=== PATIENT | female | born 1930 | race Caucasian/White ===

== ENCOUNTER 2016-06-29 17:55 | Observation (INO) ==
--- NOTE | 2016-06-29 18:01 | Emergency Department Note ---
Disposition Clinical Impression: Pubic ramus fracture Disposition: Admitted As Inpatient Condition: Fair Time of Disposition: 17:59 (ke marcialjose) General Adult HPI - General Chief complaint: ED General Medical Stated complaint: increased pain to pelvis, s/p fx Time Seen by Provider: 06/29/16 18:00 Source: patient Mode of arrival: ambulatory Limitations: no limitations Nursing Notes Reviewed: Yes Vital Signs Reviewed: Yes - History of Present Illness HPI Narrative: Seen last week by the emergency room diagnosis of the pubic rami fracture patient at that time thought she could go home since then has not been able to get up and be very ambulatory at home and is having increasing pain and tenderness was seen by the orthopedic physician today who sent her to the emergency room for evaluation she presents here with plans of being admitted for the fracture Onset (ago): day(s) Location: pelvis Pain Severity: severe Pain Scale: 10 Consistency: constant Improves with: immobilization Worsens with: movement Associated symptoms: Reports: weakness. Denies: confusion, chest pain, cough, diaphoresis, fever/chills, headaches, loss of appetite, malaise, nausea/vomiting , shortness of breath, syncope Treatments Prior to Arrival: none - Related Data Home Medications Medication Instructions Recorded Confirmed Cholecalciferol (Vitamin D3) 1,000 unit PO QAM 08/07/15 06/22/16 [Vitamin D3] Docusate [Colace] 100 mg PO BID 08/07/15 06/29/16 Levothyroxine Sodium [Synthroid] 200 mcg PO QAM 08/07/15 06/29/16 [place]-3/Dha/Epa/Fish Oil [Fish Oil 1 each PO QAM 08/07/15 06/29/16 [place]-3 Softgel] CloNIDine HCl [Clonidine HCl] 0.3 mg PO TID 08/21/15 06/22/16 Sertraline [Zoloft] 100 mg PO DAILY 08/21/15 06/29/16 Minoxidil 10 mg PO BID 10/21/15 06/29/16 Atorvastatin [Lipitor] 10 mg PO HS 04/26/16 06/22/16 Carvedilol [Coreg] 12.5 mg PO TIDWM 04/26/16 06/29/16 NIFEdipine [Nifedical Xl] 30 mg PO BID 04/26/16 06/29/16 Pantoprazole Sodium [Protonix] 20 mg PO BID 04/26/16 06/29/16 Warfarin [Coumadin] 10 mg PO DAILY 04/26/16 06/29/16 Amiodarone [Cordarone] 200 mg PO DAILY 06/29/16 06/29/16 Atorvastatin [Lipitor] 10 mg PO HS 06/29/16 06/29/16 Previous Rx's Medication Instructions Recorded Meloxicam [Mobic] 7.5 mg PO DAILY #10 tablet 06/22/16 OxyCODONE/APAP 5/325 [Percocet 0.5 - 1 each PO Q4HR PRN #20 tablet 06/22/16 5/325 MG] Allergies Allergy/AdvReac Type Severity Reaction Status Date / Time chloramphenicol Allergy Blister Verified 06/29/16 17:57 [From Chloromycetin] codeine Allergy Blister Verified 06/29/16 17:57 Homatropine [From Tussigon] Allergy Blister Verified 06/29/16 17:57 Hydralazine Allergy Shakiness Verified 06/29/16 17:57 hydrocodone [From Tussigon] Allergy Blister Verified 06/29/16 17:57 Penicillins [PCN] Allergy Blister Verified 06/29/16 17:57 quinagolide Allergy Blister Verified 06/29/16 17:57 amlodipine [From Norvasc] AdvReac See Verified 06/29/16 17:57 Comments All systems ED: reviewed and negative except as stated. Constitutional: Reports: weakness. Denies: fever, chills Eyes: Denies: vision change ENT ED: Denies: ear pain, throat pain Cardiovascular: Denies: chest pain, palpitations, dyspnea on exertion Respiratory: Denies: cough, dyspnea, wheezes Gastrointestinal: Denies: abdominal pain, nausea, vomiting Genitourinary: Denies: urgency, dysuria, frequency Musculoskeletal: Reports: other (Pain with weightbearing) Integumentary: Denies: abrasion, lesions Neurological: Reports: weakness. Denies: headache Psychiatric: Denies: anxiety Endocrine: Reports: fatigue Hematological/Lymphatic: Denies: easy bleeding Allergic/Immunologic: Denies: facial swelling Past Medical History - Past Medical History Attestation: Yes The following information was validated with the patient. Source: patient, old records reviewed, nursing notes reviewed Medical history: Reports: atrial fibrillation, diabetes, dialysis, hyperlipidemia, hypertension, renal disease, thyroid disease Psychiatric history: Reports: no psych history [employer] history: Reports: no [employer] history, uterine fibroids - Social History Smoking Status: Never smoker Smokeless Tobacco Status: No Alcohol use: Reports: none Drug use: Reports: none Physical Exam - General Limitations: no limitations General appearance: alert, in no apparent distress - Head Head exam: atraumatic, normocephalic, normal inspection - Eye Eye exam: Present: normal appearance, PERRL, EOMI - ENT ENT exam: normal exam, normal oropharynx, mucous membranes moist, normal external ear exam - Neck Neck exam: Present: normal inspection, full ROM, lymphadenopathy - Chest Chest inspection: Present: normal inspection - Respiratory Respiratory exam: Present: normal lung sounds bilaterally - Cardiovascular Cardiovascular exam: Present: regular rate, normal rhythm, normal heart sounds - Abdominal Exam Abdominal exam: Present: soft, Non-Tender, normal bowel sounds. Absent: tenderness, distention, guarding, rebound, rigidity - Expanded Upper Extremity Exam Shoulder exam: Present: normal inspection, full ROM Arm exam: Present: normal inspection, full ROM Elbow exam: Present: normal inspection, full ROM Forearm/Wrist exam: Present: normal inspection, full ROM Hand exam: Present: normal inspection, full ROM Vascular exam: Normal: capillary refill, radial pulse - Expanded Lower Extremity Exam Hip/Pelvis exam: Present: normal inspection, full ROM, other (pain with weight bearing) Upper leg exam: Present: normal inspection, full ROM Knee exam: Present: normal inspection, full ROM Lower leg exam: Present: normal inspection, full ROM Ankle exam: Present: normal inspection, full ROM Foot/toe exam: Present: normal inspection, full ROM Neurovascular/Tendon exam: Present: normal capillary refill, normal fine/light touch. Absent: motor deficit, sensory deficit, tendon deficit Gait: unable to bear weight - Back Exam Back exam: Present: normal inspection, full ROM. Absent: muscle spasm - Neurological Exam Neurological exam: Present: alert, oriented X3, CN II-XII intact - Psychiatric Psychiatric exam: Present: normal affect, normal mood - Skin Skin exam: Present: warm, dry, intact, normal color Course Course Narrative: Seen and examined admitted - Reevaluation(s) Reevaluation #1: Spoke with Dr. Dempsey that the patient receiving dialysis will try to get her arranged to get [facility] patient denies any additional complaints we will have her evaluated by social welfare clerk in the morning Vital Signs Pulse Rate 63 06/29/16 17:58 Respiratory Rate 18 06/29/16 17:58 Blood Pressure 175/64 06/29/16 17:58 O2 Sat by Pulse Oximetry 97 06/29/16 17:58 Temperature 98.8 F 06/29/16 18:25 Pulse Rate 68 06/29/16 18:25 Respiratory Rate 20 06/29/16 18:25 Blood Pressure 175/56 06/29/16 18:25 O2 Sat by Pulse Oximetry 98 06/29/16 18:25 Oxygen Delivery Oxygen Delivery Nasal Cannula Medical Decision Making - MDM Narrative Medical decision making narrative: Seen and examined patient admitted for observation transferred to [facility] for observation for PT OT evaluation for possible group home or Respit care Ke agrees - Medical Records Medical records reviewed: Yes I reviewed the patient's medical records. - Lab Data Lab results reviewed: Yes I reviewed the patient's lab results. Result diagrams: 06/29/16 18:12 06/29/16 18:12 Lab Results 06/29/16 06/29/16 06/29/16 Range/Units 18:12 18:12 18:12 WBC 12.2 H (4.3-11.1) K/mcL RBC 3.21 L (3.82-4.97) M/mcL Hgb 9.5 L (11.5-15.4) g/dL Hct 27.9 L (35.3-44.9) % MCV 86.9 (83.0-100.0) fL MCH 29.6 (28.0-33.3) pg MCHC 34.1 (31.6-35.5) g/dL RDW 18.1 H (11.5-14.5) % Plt Count 234 (140-400) K/mcL MPV 8.3 L (9.4-12.4) fL Immature Gran % 0.9 (0-4) % Seg Neutrophils % 85.9 % Lymphocytes % 6.7 % Monocytes % 5.5 % Eosinophils % 0.8 % Basophils % 0.2 % Neutrophils # 10.5 H (1.6-8.9) K/mcL Lymphocytes # 0.8 (0.6-4.6) K/mcL Monocytes # 0.7 (0.0-1.3) K/mcL Eosinophils # 0.1 (0.0-0.6) K/mcL Basophils # 0.0 (0.0-0.2) K/mcL PT 28.8 H (9.4-12.1) Seconds INR 2.6 APTT 39.3 H (26.0-36.0) Seconds Sodium 134 L (136-145) mEq/L Potassium 4.3 (3.5-4.5) mEq/L Chloride 98 (98-109) mEq/L Carbon Dioxide 22 (19-29) mEq/L BUN 49 H (7-20) mg/dL Creatinine 5.06 H (0.57-1.11) mg/dL Est GFR ( Amer) 10 L (> 60) Est GFR (Non-Af Amer) 8 L (> 60) BUN/Creatinine Ratio 10 (6-26) Glucose 220 H (70-99) mg/dL Calculated Osmolality 298 (280-300) Calcium 8.4 L (8.6-10.8) mg/dL Critical Care Time Critical Care Time: No
[2016-06-29 18:20] LABS: Basophils % 0.2 %; Eosinophils # 0.1 K/mcL (0.0-0.6); Eosinophils % 0.8 %; Hematocrit 27.9 % (35.3-44.9); Hemoglobin 9.5 g/dL (11.5-15.4); Immature Granulocytes % 0.9 % (0-4); Lymphocytes # 0.8 K/mcL (0.6-4.6); Lymphocytes % 6.7 %; Mean Corpuscular HGB Conc 34.1 g/dL (31.6-35.5); Mean Corpuscular Hemoglobin 29.6 pg (28.0-33.3); Mean Corpuscular Volume 86.9 fL (83.0-100.0); Mean Platelet Volume 8.3 fL (9.4-12.4); Monocytes # 0.7 K/mcL (0.0-1.3); Monocytes % 5.5 %; Platelet Count 234 K/mcL (140-400); Red Blood Count 3.21 M/mcL (3.82-4.97); Red Cell Distribution Width 18.1 % (11.5-14.5); Segmented Neutrophils % 85.9 %
[2016-06-29 18:21] LABS: Neutrophils # 10.5 K/mcL (1.6-8.9)
[2016-06-29 18:25] LABS: INR 2.6; Prothrombin Time 28.8 Seconds (9.4-12.1)
[2016-06-29 18:28] LABS: Activated Partial Thrombo Time 39.3 Seconds (26.0-36.0)
[2016-06-29 18:32] LABS: Calcium 8.4 mg/dL (8.6-10.8); Potassium 4.3 mEq/L (3.5-4.5)
[2016-06-29] MEDS ORDERED: Naloxone 0.4 MG/ML INJ IVP PRN (19:34)
[2016-06-29] MEDS ORDERED: *HR* OxyCODONE/APAP 5/325 TABLET PO PRN (19:34)
[2016-06-29] MEDS: *HR* Warfarin 2 MG TABLET PO SCH (21:02)
[2016-06-29] MEDS: NIFEdipine XL (24 HR) 30 MG TAB.ER.24 PO SCH (21:02)
[2016-06-29 22:56] LABS: Bilirubin,Urine Moderate (Negative); Blood,Urine Negative (Negative); Clarity,Urine Cloudy (Clear); Color,Urine Yellow (Yellow); Glucose,Urine (UA) 100 mg/dL (Normal); Ketones,Urine 15 mg/dL (Negative); Leukocyte Esterase,Urine Trace (Negative); Nitrite,Urine Negative (Negative); Protein,Urine >=300 mg/dL (Neg-Trace); Specific Gravity,Urine 1.025 (1.010-1.025); Urobilinogen,Urine Normal (Normal)
[2016-06-29 23:04] LABS: Bacteria,Urine Few per hpf (None-Few); Squamous Epithelial Cell,Urine Moderate per lpf (None-Few); WBC,Urine 15-30 per hpf (0-3)
[2016-06-30] MEDS ORDERED: OMEGA PO SCH (09:00)
[2016-06-30] MEDS ORDERED: FISH OIL PO SCH (09:00)
[2016-06-30] MEDS ORDERED: *HR* Warfarin 5 MG TABLET PO SCH (09:00)
[2016-06-30] MEDS ORDERED: DHA PO SCH (09:00)
[2016-06-30] MEDS ORDERED: EPA PO SCH (09:00)
[2016-06-30] MEDS: NIFEdipine XL (24 HR) 30 MG TAB.ER.24 PO SCH ×2 (09:06→21:22)
[2016-06-30] MEDS: Cholecalciferol (D-3) 1,000 UNIT TABLET PO SCH (09:06)
--- NOTE | 2016-06-30 12:43 | Internal Med History&Physical ---
Date of Encounter: 06/30/16 Time of Encounter: 12:15 Assessment and Plan (1) Pubic ramus fracture Current visit: Yes Status: Acute June 30. She has been admitted to [facility] observation status. Physical therapy and occupational therapy consults will be ordered. Analgesics will be given as needed. Qualifiers: Encounter type: initial encounter Fracture type: closed Laterality: left Qualified Code(s): S32.592A - Other specified fracture of left pubis, initial encounter for closed fracture (2) CKD (chronic kidney disease) stage V requiring chronic dialysis Current visit: Yes Status: Chronic June 30. Continue MWF dialysis. (3) Anemia Current visit: No Status: Chronic June 30. Iron studies done 05/12/2016 showed iron 50, transferrin saturation 24 %, ferritin 42, transferrin 146. Folate level was 6.7 on 08/09/2015. We will recheck folate level in the a.m. Suspect primarily due to chronic kidney disease. 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 The etiology is not obvious at this time. We will recheck labs in a.m. (5) High blood pressure Current visit: Yes Status: Chronic June 30. Continue home medications and monitor blood pressures Qualifiers: Hypertension type: essential hypertension Qualified Code(s): I10 - Essential (primary) hypertension Internal Medicine - H&P: HPI Chief complaint: Pelvic fracture with pain Admitted From: Home Plans for Post Hospital Care: Transfer [facility] History of present illness: Ms. Means is a 85 year old female who sustained a fall June 22 resulting in left inferior pubic ramus fracture. She was seen in emergency room and released with analgesics. Her pain did not significantly improve. She saw an orthopedist June 29 who referred her to the emergency room. He recommended she be nonweightbearing until a follow-up visit with him in 3-4 weeks. She was admitted to [facility] for ongoing care needs. She was hospitalized last at [facility] August 2015 with elevated blood pressure. Her musculoskeletal history is significant for DJD but no known gout or osteoporosis. Past Med Surg Social Fam HX - Past Medical History Medical history: atrial fibrillation, diabetes, dialysis, hyperlipidemia, hypertension, renal disease, thyroid disease Psychiatric history: no psych history - Social History Smoking Status: Former smoker Smokeless Tobacco Status: No Alcohol use: none Drug use: none - Family History Mother Hx Family Cardiac Disorders: Yes (CHF) Hx Family Endocrine Disorder: Yes (DM) Father Hx Family Cancer: Yes (colon cancer) Internal Medicine - H&P: Meds Cholecalciferol (Vitamin D3) [Vitamin D3] 1,000 unit PO QAM 08/07/15 [History] Docusate [Colace] 100 mg PO BID 08/07/15 [History] Levothyroxine Sodium [Synthroid] 200 mcg PO QAM 08/07/15 [History] [place]-3/Dha/Epa/Fish Oil [Fish Oil [place]-3 Softgel] 1 each PO QAM 08/07/15 [ History] CloNIDine HCl [Clonidine HCl] 0.3 mg PO TID 08/21/15 [History] Sertraline [Zoloft] 100 mg PO DAILY 08/21/15 [History] Minoxidil 10 mg PO BID 10/21/15 [History] Atorvastatin [Lipitor] 10 mg PO HS 04/26/16 [History] Carvedilol [Coreg] 12.5 mg PO BID 04/26/16 [History] NIFEdipine [Nifedical Xl] 30 mg PO BID 04/26/16 [History] Pantoprazole Sodium [Protonix] 20 mg PO BID 04/26/16 [History] Warfarin [Coumadin] 4 mg PO HS 04/26/16 [History] Meloxicam [Mobic] 7.5 mg PO DAILY #10 tablet 06/22/16 [Rx] OxyCODONE/APAP 5/325 [Percocet 5/325 MG] 0.5 - 1 each PO Q4HR PRN #20 tablet [Rx] Amiodarone [Cordarone] 200 mg PO DAILY 06/29/16 [History] Atorvastatin [Lipitor] 10 mg PO HS 06/29/16 [History] Allergies chloramphenicol [From Chloromycetin] Allergy (Verified 06/29/16 17:57) Blister codeine Allergy (Verified 06/29/16 17:57) Blister Homatropine [From Tussigon] Allergy (Verified 06/29/16 17:57) Blister Hydralazine Allergy (Verified 06/29/16 17:57) [place] patient has been on this Rx previously and doctor removed pt due to reaction hydrocodone [From Tussigon] Allergy (Verified 06/29/16 17:57) Blister Penicillins [PCN] Allergy (Verified 06/29/16 17:57) Blister quinagolide Allergy (Verified 06/29/16 17:57) Blister amlodipine [From Norvasc] Adverse Reaction (Verified 06/29/16 17:57) See Comments swelling of legs All Systems PM: A 10-system review of systems was performed and is negative for pertinent findings except as documented above in the HPI. Review of systems: Gen.: Her weight has decreased from 65.7 kg August 2015 to 60.3 kg on admission now Cardiovascular: She was diagnosed with hypertension in 1993. She is unaware if workup has been done for secondary hypertension. She was told about 30 years ago she had MVP seen on heart catheter at [facility]. Her last stress test was the . She denies CT heart failure DVT or pulmonary embolus. She has atrial fibrillation that sounds to be paroxysmal in frequency. She had an echocardiogram October 2015 which showed LVEF of 70% with increased thickness of the interventricular septum and posterior wall 1.5 cm and 1.2 cm respectively. Respiratory: She smoked from age [age]. She was hospitalized at [facility] April 2016 was discharged with oxygen but does not know the qualifying diagnosis. 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 CPAP titration was recommended. GI: She has GERD. She has had cholecystectomy. She denies disorders of her liver or exocrine pancreas. : She has CKD stage 5 and was started on MWF hemodialysis at [facility] April 2016. She has a right subclavian port in place now but is anticipating seeing a [place] physician for AV fistula placement soon . She had hysterectomy. She denies other kidney or bladder disorders. Neurologic: She denies large distribution strokes or seizures. Endocrine: She was diagnosed with DM 2 approximately 2009. She has hypothyroidism but denies hyperlipidemia Hematology/oncology: She denies blood disorders or cancers. She has history of anemia with folate deficiency Psychiatric: She denies anxiety depression or other mental health issues but does take Zoloft. [place] skeletal: She has DJD but no known gout or osteoporosis. - Constitutional Vitals: Temp Pulse Resp BP Pulse Ox 98.6 F 64 16 158/56 94 L 06/30/16 10:56 06/30/16 10:56 06/30/16 10:56 06/30/16 10:56 06/30/16 10:56 Exam: Gen.: She is a well-developed well-nourished female who is lying in bed and appears in no severe distress at present time. HEENT: Head is atraumatic and normocephalic. Eyes: EOMI. There is no scleral icterus. Mouth: Mucosa is moist. Neck: Supple and nontender. There is no thyromegaly or adenopathy noted. Heart: Regular without murmurs gallops or ectopics. Lungs: No wheezes or crackles are heard. Abdomen: Soft and nontender. No masses or guarding are noted. Extremities: There is no cyanosis edema or clubbing noted. Dorsalis pedis and posterior tibial pulses 1-2 over 2 bilaterally. Neurologic: Mental status: She is talkative and a good historian. Cranial nerves: Smile is symmetric. Forehead wrinkles bilaterally. Tongue protrudes midline. EOMI. Motor: There is no pronator drift. Cerebellar: Finger to nose is intact bilaterally. Skin: Warm and dry Internal Med - H&P Results - Labs CBC & Chem 7: 06/29/16 18:12 06/29/16 18:12 Labs: Urine 06/29/16 Range/Units 22:41 Urine Color Yellow (Yellow) Urine Clarity Cloudy A (Clear) Urine pH 5.0 (5.0-8.0) pH Units Ur Specific [place] 1.025 (1.010-1.025) Urine Protein >=300 H (Neg-Trace) mg/dL Urine Glucose (UA) 100 H (Normal) mg/dL
[2016-06-30] MEDS: *HR* Warfarin 2 MG TABLET PO SCH (18:03)
[2016-07-01 04:52] LABS: Basophils % 0.3 %; Eosinophils # 0.2 K/mcL (0.0-0.6); Eosinophils % 1.9 %; Hematocrit 22.8 % (35.3-44.9); Hemoglobin 7.7 g/dL (11.5-15.4); Immature Granulocytes % 0.7 % (0-4); Lymphocytes # 1.3 K/mcL (0.6-4.6); Lymphocytes % 12.5 %; Mean Corpuscular HGB Conc 33.8 g/dL (31.6-35.5); Mean Corpuscular Hemoglobin 29.5 pg (28.0-33.3); Mean Corpuscular Volume 87.4 fL (83.0-100.0); Mean Platelet Volume 8.8 fL (9.4-12.4); Monocytes # 0.7 K/mcL (0.0-1.3); Monocytes % 6.9 %; Neutrophils # 8.1 K/mcL (1.6-8.9); Platelet Count 183 K/mcL (140-400); Red Blood Count 2.61 M/mcL (3.82-4.97); Red Cell Distribution Width 17.9 % (11.5-14.5); Segmented Neutrophils % 77.7 %
[2016-07-01 04:58] LABS: INR 2.9
[2016-07-01 05:09] LABS: Albumin 2.6 g/dL (3.5-5.0); Albumin/Globulin Ratio 0.7 (1.1-2.2); Bilirubin,Total 0.4 mg/dL (0.2-1.2); Calcium 7.7 mg/dL (8.6-10.8); Globulin 3.7 g/dL (2.4-3.5); Potassium 4.9 mEq/L (3.5-4.5); Total Protein 6.3 g/dL (6.0-8.3)
[2016-07-01] MEDS: Cholecalciferol (D-3) 1,000 UNIT TABLET PO SCH (08:30)
[2016-07-01] MEDS: NIFEdipine XL (24 HR) 30 MG TAB.ER.24 PO SCH (08:31)
[2016-07-01 10:38] LABS: Folate 7.2 ng/mL (7.0-31.4)
[2016-07-01 12:21] VITALS: BP 141/45
--- NOTE | 2016-07-01 15:24 | Discharge Summary ---
Date of Encounter: 07/01/16 Time of Encounter: 10:30 - Discharge Diagnosis (1) Pubic ramus fracture Priority: Primary Status: Acute Qualifiers: Encounter type: initial encounter Fracture type: closed Laterality: left Qualified Code(s): S32.592A - Other specified fracture of left pubis, initial encounter for closed fracture (2) CKD (chronic kidney disease) stage V requiring chronic dialysis Priority: Secondary Status: Chronic (3) Anemia Priority: Secondary Status: Chronic Qualifiers: Anemia type: folate deficiency Folate deficiency anemia type: unspecified folate deficiency Qualified Code(s): D52.9 - Folate deficiency anemia, unspecified (4) Neutrophilic leukocytosis Priority: Secondary Status: Acute (5) High blood pressure Priority: Secondary Status: Chronic Qualifiers: Hypertension type: essential hypertension Qualified Code(s): I10 - Essential (primary) hypertension - Discharge Medications Prescriptions: OxyCODONE/APAP 5/325 [Percocet 5/325 MG] 1 each PO Q4HR PRN #30 tablet PRN Reason: Pain Home Medications: Cholecalciferol (Vitamin D3) [Vitamin D3] 1,000 unit PO QAM 08/07/15 [History] Docusate [Colace] 100 mg PO BID 08/07/15 [History] Levothyroxine Sodium [Synthroid] 200 mcg PO QAM 08/07/15 [History] [place]-3/Dha/Epa/Fish Oil [Fish Oil [place]-3 Softgel] 1 each PO QAM 08/07/15 [ History] CloNIDine HCl [Clonidine HCl] 0.3 mg PO TID 08/21/15 [History] Sertraline [Zoloft] 100 mg PO DAILY 08/21/15 [History] Minoxidil 10 mg PO BID 10/21/15 [History] Atorvastatin [Lipitor] 10 mg PO HS 04/26/16 [History] Carvedilol [Coreg] 12.5 mg PO BID 04/26/16 [History] NIFEdipine [Nifedical Xl] 30 mg PO BID 04/26/16 [History] Pantoprazole Sodium [Protonix] 20 mg PO BID 04/26/16 [History] Warfarin [Coumadin] 4 mg PO HS 04/26/16 [History] Meloxicam [Mobic] 7.5 mg PO DAILY #10 tablet 06/22/16 [Rx] Amiodarone [Cordarone] 200 mg PO DAILY 06/29/16 [History] Atorvastatin [Lipitor] 10 mg PO HS 06/29/16 [History] OxyCODONE/APAP 5/325 [Percocet 5/325 MG] 1 each PO Q4HR PRN #30 tablet 07/01/16 [Rx] Allergies/Adverse Reactions: Allergies chloramphenicol [From Chloromycetin] Allergy (Verified 06/29/16 17:57) Blister codeine Allergy (Verified 06/29/16 17:57) Blister Homatropine [From Tussigon] Allergy (Verified 06/29/16 17:57) Blister Hydralazine Allergy (Verified 06/29/16 17:57) Shakiness patient has been on this Rx previously and doctor removed pt due to reaction hydrocodone [From Tussigon] Allergy (Verified 06/29/16 17:57) Blister Penicillins [PCN] Allergy (Verified 06/29/16 17:57) Blister quinagolide Allergy (Verified 06/29/16 17:57) Blister amlodipine [From Norvasc] Adverse Reaction (Verified 06/29/16 17:57) See Comments swelling of legs Date of admission: 06/29/16 18:33 Primary care physician: Walt Tripp DO - Patient Status Disposition: Hospice - Medical Facility Condition: Fair Overall status at discharge: patient is progressing back to baseline - Discharge Instructions Follow Up With: Walt Tripp DO [Primary Care Provider] - 1 week - Diet and Activity Activity: as per physical therapy Diet: advance to your usual diet Hospital course: Ms. Means is a 85 year old female who sustained a fall June 22 resulting in left inferior pubic ramus fracture. She was seen in emergency room and released with analgesics. Her pain did not significantly improve. She saw an orthopedist June 29 who referred her to the emergency room. He recommended she be nonweightbearing until a follow-up visit with him in 3-4 weeks. She was admitted to [facility] for ongoing care needs. Initial orders were written by the emergency room physician. I saw her on June 30 and performed a history and physical. She had physical therapy and occupational therapy evaluations. Analgesics were given as needed. Social service consult was made. She was did not have dialysis on June 30. After lengthy research into the possible options and denial of inpatient status determined by an outside EHR review it was decided she could be discharged to [facility] on hospice benefit. She will continue to receive dialysis as usual at the [place] dialysis facility. Anemia testing showed iron 23, transferrin 125 (low) , transferrin saturation 23 %, ferritin 686, B12 604, and folate 7.2. Her hemoglobin decreased to 7.7 on July 01. I felt this was due to combination of a pelvic fracture with use of Coumadin and meloxicam. She was ordered to be partial weight-bearing by the orthopedist upon review of his office visit note. She will follow with him in 3 -4 weeks. Follow-up lab work showed normalization of WBC and resolution of left shift on July 01. - Time Spent with Patient Total time spent providing and/or coordinating discharge services: - Constitutional Vitals: Temp Pulse Resp BP Pulse Ox 98.2 F 55 18 141/45 98 07/01/16 12:00 07/01/16 12:00 07/01/16 12:00 07/01/16 12:00 07/01/16 12:00
--- NOTE | 2016-07-01 15:33 | Physician Discharge Referral ---
ExtendedCare Referral Info Transfer To: [place] Provider in Charge: Ke Provider in Charge after Transfer: PCP - Diagnosis (1) Pubic ramus fracture Priority: Primary Status: Acute (2) CKD (chronic kidney disease) stage V requiring chronic dialysis Priority: Secondary Status: Chronic (3) Anemia Priority: Secondary Status: Chronic (4) Neutrophilic leukocytosis Priority: Secondary Status: Acute (5) High blood pressure Priority: Secondary Status: Chronic Prognosis: Good Aware of Diagnosis: Patient, Family Aware of Prognosis: Patient, Family - Transfer Medications Prescriptions: OxyCODONE/APAP 5/325 [Percocet 5/325 MG] 1 each PO Q4HR PRN #30 tablet PRN Reason: Pain Home Medications: Cholecalciferol (Vitamin D3) [Vitamin D3] 1,000 unit PO QAM 08/07/15 [History] Docusate [Colace] 100 mg PO BID 08/07/15 [History] Levothyroxine Sodium [Synthroid] 200 mcg PO QAM 08/07/15 [History] [place]-3/Dha/Epa/Fish Oil [Fish Oil [place]-3 Softgel] 1 each PO QAM 08/07/15 [ History] CloNIDine HCl [Clonidine HCl] 0.3 mg PO TID 08/21/15 [History] Sertraline [Zoloft] 100 mg PO DAILY 08/21/15 [History] Minoxidil 10 mg PO BID 10/21/15 [History] Atorvastatin [Lipitor] 10 mg PO HS 04/26/16 [History] Carvedilol [Coreg] 12.5 mg PO BID 04/26/16 [History] NIFEdipine [Nifedical Xl] 30 mg PO BID 04/26/16 [History] Pantoprazole Sodium [Protonix] 20 mg PO BID 04/26/16 [History] Warfarin [Coumadin] 4 mg PO HS 04/26/16 [History] Meloxicam [Mobic] 7.5 mg PO DAILY #10 tablet 06/22/16 [Rx] Amiodarone [Cordarone] 200 mg PO DAILY 06/29/16 [History] Atorvastatin [Lipitor] 10 mg PO HS 06/29/16 [History] OxyCODONE/APAP 5/325 [Percocet 5/325 MG] 1 each PO Q4HR PRN #30 tablet 07/01/16 [Rx] Allergies/Adverse Reactions: Allergies chloramphenicol [From Chloromycetin] Allergy (Verified 06/29/16 17:57) Blister codeine Allergy (Verified 06/29/16 17:57) Blister Homatropine [From Tussigon] Allergy (Verified 06/29/16 17:57) Blister Hydralazine Allergy (Verified 06/29/16 17:57) Shakiness patient has been on this Rx previously and doctor removed pt due to reaction hydrocodone [From Tussigon] Allergy (Verified 06/29/16 17:57) Blister Penicillins [PCN] Allergy (Verified 06/29/16 17:57) Blister quinagolide Allergy (Verified 06/29/16 17:57) Blister amlodipine [From Norvasc] Adverse Reaction (Verified 06/29/16 17:57) See Comments swelling of legs - Respiratory Orders Smoking Cessation: Smoking cessation has been advised. For more information, call the [place] Tobacco Quit Line at 9-303-YTZG-NOW. - Rehabiliation Orders Rehab Orders: Evaluation for Physical Therapy, Evaluation for Occupational Therapy CERTIFICATION: I certify that the transfer of the above named patient to an Extended Care Facility is necessary for the continuing treatment of the diagnosis listed. The above information is true and accurate reflection of patient's current condition. Confidential - Redisclosure prohibited without a patient's written consent.
== END 2016-07-01 16:44 | disposition hospice, inpatient (51) ==
LOC: EMEROOPIK 17:55 → INPPIK 17:55
PROVIDERS: ADMIT Internal Medicine; ATTEND Internal Medicine